=== PATIENT | male | born 1985 | race Hispanic/Latino ===

== ENCOUNTER 2019-02-16 18:56 | Emergency (ER) | payer SELFPAY ==
[2019-02-16] MEDS ORDERED: METOPROLOL TAR 50 MG TAB ONE (20:07)
[2019-02-16] MEDS ORDERED: ENALAPRILAT 1.25 MG/ML VIAL IV ONE (20:07)
[2019-02-16] MEDS ORDERED: NA CHLORIDE 0.9% 1,000 ML ONE (20:07)
[2019-02-16] MEDS ORDERED: ASPIRIN 81 MG CHEWABLE TABLET ONE (20:07)
[2019-02-16] MEDS ORDERED: FAMOTIDINE 20 MG/2 ML VIAL IV ONE (20:07)
[2019-02-16] MEDS ORDERED: THIAMINE 200 MG/2 ML INJ ONE (20:07)
[2019-02-16 20:09] LABS: Protime INR 1.03
[2019-02-16 20:10] LABS: Basophils % 0.4 % (0-1.3); Hematocrit 46.9 % (39.6-49.0); Lymphocytes % 35.3 % (15.3-44.8); MPV 7.4 fL (7.6-11.3); RBC Red Blood Cell Count 5.12 M/uL (4.33-5.43)
--- NOTE | 2019-02-16 20:35 | RAD REPORT ---
EXAM DESCRIPTION: RAD - Chest Single View - 02/16/2019 8:00 pm CLINICAL HISTORY: Chest pain COMPARISON: None. TECHNIQUE: AP portable chest image was obtained 1956 hours . FINDINGS: Lungs are clear. Heart and vasculature are normal. No measurable pleural effusion and no p neumothorax. No acute bony abnormality seen. No acute aortic findings suspected. IMPRESSION: No acute cardiopulmonary process.
[2019-02-16 20:37] LABS: ALT/SGPT 72 U/L (12-78); AST/SGOT 37 U/L (15-37); Albumin 4.1 g/dL (3.4-5.0); Alkaline Phosphatase 96 U/L (45-117); BUN Blood Urea Nitrogen 14 mg/dL (7-18); Bicarbonate 28 mmol/L (21-32); Bilirubin Direct 0.1 mg/dL (0-0.2); Bilirubin Total 0.4 mg/dL (0.2-1.0); Glucose Level 111 mg/dL (74-106); Magnesium 2.6 mg/dL (1.8-2.4); Potassium 4.1 mmol/L (3.5-5.1); Sodium Level 146 mmol/L (136-145); Troponin (Emerg Dept Use Only) < 0.02 ng/mL (0.0-0.045)
[2019-02-16 20:42] LABS: NT PRO-BNP < 5 pg/mL (<125)
[2019-02-16 20:50] LABS: Barbiturates NEGATIVE (NEGATIVE); Benzodiazepines NEGATIVE (NEGATIVE); Cocaine NEGATIVE (NEGATIVE); METHAMPHETAM NEGATIVE (NEGATIVE); Methadone NEGATIVE (NEGATIVE); Opiates NEGATIVE (NEGATIVE); Phencyclidine NEGATIVE (NEGATIVE); THC Cannibis NEGATIVE (NEGATIVE)
[2019-02-16 21:01] LABS: Lipase 164 U/L (73-393)
[2019-02-16 21:28] LABS: Urine Blood NEGATIVE (NEG); Urine Glucose NEGATIVE (NEG); Urine Protein NEGATIVE (NEG)
--- NOTE | 2019-02-16 22:36 | EDPHYS ---
Physician Documentation [facility] Name: Erich Leung Age: 33 yrs Sex: Male : 1985 Arrival Date: 02/16/2019 Time: 18:58 Bed 30 Private MD: ED Physician Jens Balderas HPI: 02/16 19:55 This 33 yrs old Male presents to ER via Ambulatory with complaints of Chest chadd Pain. 19:55 The patient or guardian reports chest pain that is located primarily in the anterior chadd chest wall, bilaterally. The pain does not radiate. Associated signs and symptoms: Pertinent positives: vomiting. The chest pain is described as a pressure, sharp. Modifying factors: The symptoms are alleviated by nothing. the symptoms are aggravated by nothing. Severity of pain: At its worst the pain was mild in the emergency department the pain is unchanged. The patient has experienced similar episodes in the past, a few times. Historical: - Allergies: 19:03 No Known Allergies; ak1 - Home Meds: 19:03 None [Active]; ak1 - PMHx: 19:03 None; ak1 - PSHx: 19:03 right leg, right foot hardware; ak1 - Immunization history:: Adult Immunizations unknown. - Social history:: Smoking status: Patient uses tobacco products, smokes one-half pack cigarettes per day. - Ebola Screening: : No symptoms or risks identified at this time. - Family history:: not pertinent. ROS: 19:55 Constitutional: Negative for fever, chills, and weight loss, Eyes: Negative for injury, chadd pain, redness, and discharge, ENT: Negative for injury, pain, and discharge, Neck: Negative for injury, pain, and swelling, Respiratory: Negative for shortness of breath, cough, wheezing, and pleuritic chest pain, Abdomen/GI: Negative for abdominal pain, nausea, vomiting, diarrhea, and constipation, Back: Negative for injury and pain, : Negative for injury, bleeding, discharge, and swelling, MS/Extremity: Negative for injury and deformity, Skin: Negative for injury, rash, and discoloration, Neuro: Negative for headache, weakness, numbness, tingling, and seizure, Psych: Negative for depression, anxiety, suicide ideation, homicidal ideation, and hallucinations, Allergy/Immunology: Negative for hives, rash, and allergies, Endocrine: Negative for neck swelling, polydipsia, polyuria, polyphagia, and marked weight changes, Hematologic/Lymphatic: Negative for swollen nodes, abnormal bleeding, and unusual bruising. 19:55 Cardiovascular: Positive for chest pain, of the chest. Exam: 19:55 Constitutional: This is a well developed, well nourished patient who is awake, alert, chadd and in no acute distress. Head/Face: Normocephalic, atraumatic. Eyes: Pupils equal round and reactive to light, extra-ocular motions intact. Lids and lashes normal. Conjunctiva and sclera are non-icteric and not injected. Cornea within normal limits. Periorbital areas with no swelling, redness, or edema. ENT: Nares patent. No nasal discharge, no septal abnormalities noted. Tympanic membranes are normal and external auditory canals are clear. Oropharynx with no redness, swelling, or masses, exudates, or evidence of obstruction, uvula midline. Mucous membranes moist. Neck: Trachea midline, no thyromegaly or masses palpated, and no cervical lymphadenopathy. Supple, full range of motion without nuchal rigidity, or vertebral point tenderness. No Meningismus. Chest/axilla: Normal chest wall appearance and motion. Nontender with no deformity. No lesions are appreciated. Respiratory: Lungs have equal breath sounds bilaterally, clear to auscultation and percussion. No rales, rhonchi or wheezes noted. No increased work of breathing, no retractions or nasal flaring. Abdomen/GI: Soft, non-tender, with normal bowel sounds. No distension or tympany. No guarding or rebound. No evidence of tenderness throughout. Back: No spinal tenderness. No costovertebral tenderness. Full range of motion. Male : Normal genitalia with no discharge or lesions. Skin: Warm, dry with normal turgor. Normal color with no rashes, no lesions, and no evidence of cellulitis. MS/ Extremity: Pulses equal, no cyanosis. Neurovascular intact. Full, normal range of motion. Neuro: Awake and alert, GCS 15, oriented to person, place, time, and situation. Cranial nerves II-XII grossly intact. Motor strength 5/5 in all extremities. Sensory grossly intact. Cerebellar exam normal. Normal gait. Psych: Awake, alert, with orientation to person, place and time. Behavior, mood, and affect are within normal limits. 19:55 Cardiovascular: Rate: tachycardic, Rhythm: regular, Pulses: Pulses are 4+ in bilateral radial, brachial, femoral, popliteal, posterior tibial and and dorsalis pedis arteries.. Heart sounds: normal, Edema: is not appreciated, JVD: is not appreciated. Vital Signs: 19:03 BP 164 / 112; Pulse 110; Resp 18; Temp 98.1; Pulse Ox 98% on R/A; Weight 83.91 kg (R); ak1 Height 5 ft. 7 in. (170.18 cm) (R); Pain 8/10; 21:34 BP 126 / 85; Pulse 80; Resp 17; Pulse Ox 99% on R/A; rr5 22:52 BP 122 / 91; Pulse 81; Resp 18; Temp 98; Pulse Ox 100% on R/A; Pain 0/10; mg2 19:03 Body Mass Index 28.97 (83.91 kg, 170.18 cm) ak1 MDM: 19:30 Patient medically screened. [facility] 19:57 Data reviewed: vital signs, nurses notes, lab test result(s), EKG, radiologic studies, chadd plain films. 02/16 19:40 Order name: Basic Metabolic Panel; Complete Time: 21:00 [facility] 02/16 19:40 Order name: CBC with Diff; Complete Time: 20:38 [facility] 02/16 19:40 Order name: LFT's; Complete Time: 21:00 rr5 02/16 19:40 Order name: Magnesium; Complete Time: 21:00 [facility] 02/16 19:40 Order name: NT PRO-BNP; Complete Time: 21:00 [facility] 02/16 19:40 Order name: PT-INR; Complete Time: 20:38 [facility] 02/16 19:40 Order name: Troponin (emerg Dept Use Only); Complete Time: 21:00 [facility] 02/16 19:55 Order name: Lipase; Complete Time: 21:59 [facility] 02/16 19:55 Order name: Acetaminophen; Complete Time: 21:59 [facility] 02/16 19:55 Order name: ETOH Level; Complete Time: 21:00 [facility] 02/16 19:55 Order name: Ptt, Activated; Complete Time: 20:38 [facility] 02/16 19:55 Order name: Salicylate; Complete Time: 21:59 [facility] 02/16 19:55 Order name: Urine Drug Screen; Complete Time: 21:00 [facility] 02/16 20:30 Order name: Urine Dipstick--Ancillary (enter results); Complete Time: 21:59 [facility] 02/16 19:40 Order name: XRAY Chest (1 view); Complete Time: 20:38 [facility] 02/16 19:40 Order name: EKG; Complete Time: 19:42 [facility] 02/16 19:40 Order name: Cardiac monitoring; Complete Time: 21:01 [facility] 02/16 19:40 Order name: EKG - Nurse/Tech; Complete Time: 21:01 [facility] 02/16 19:40 Order name: IV Saline Lock; Complete Time: 21:02 [facility] 02/16 19:40 Order name: Labs collected and sent; Complete Time: 21:02 [facility] 02/16 19:40 Order name: O2 Per Protocol; Complete Time: 21:02 [facility] 02/16 19:40 Order name: O2 Sat Monitoring; Complete Time: 21:02 [facility] 02/16 19:55 Order name: Urine Dipstick-Ancillary (obtain specimen); Complete Time: 21:01 [facility] 02/16 21:06 Order name: Troponin (emerg Dept Use Only): 10pm; Complete Time: 22:34 [facility] Administered Medications: 20:15 Drug: Aspirin 162 mg Route: PO; rr5 22:55 Follow up: Response: No adverse reaction mg2 20:15 Drug: Lopressor (metoprolol TARTRATE) 50 mg Route: PO; rr5 22:54 Follow up: Response: No adverse reaction; Marked relief of symptoms mg2 20:25 Drug: NS 0.9% 1000 ml Route: IV; Rate: 1 bolus; Site: right antecubital; rr5 22:55 Follow up: Response: No adverse reaction; IV Status: Completed infusion; IV Intake: mg2 1000ml 20:25 Drug: Thiamine 100 mg Route: IV; Rate: bolus; Site: right antecubital; rr5 22:55 Follow up: Response: No adverse reaction; IV Status: Completed infusion mg2 20:28 Drug: Enalaprilat 1.25 mg Route: IV; Rate: per protocol; Site: right antecubital; rr5 22:55 Follow up: Response: No adverse reaction; IV Status: Completed infusion mg2 20:30 Drug: Pepcid 20 mg Route: IVP; Site: right antecubital; rr5 22:55 Follow up: Response: No adverse reaction mg2 Disposition: 02/16/19 22:35 Discharged to Home. Impression: Other chest pain, Alcohol abuse, Alcohol abuse with intoxication, Essential (primary) hypertension. - Condition is Stable. - Discharge Instructions: Alcohol Intoxication, Hypertension, Nonspecific Chest Pain, Ctyz-yp-Nlwy, Hypertension, Yxek-jq-Motv, Alcohol Abuse and Nutrition, How to Take Your Blood Pressure, Skzt-kv-Amtj, Aspirin and Your Heart, Managing Your Hypertension. - Prescriptions for Pepcid 20 mg Oral Tablet - take 1 tablet by ORAL route every 12 hours for 10 days; 20 tablet. Lisinopril 10 mg Oral Tablet - take 1 tablet by ORAL route once daily; 20 tablet. - Medication Reconciliation Form, Thank You Letter, Antibiotic Education, Prescription Opioid Use form. - Follow up: Private Physician; When: 2 - 3 days; Reason: Recheck today's complaints, Continuance of care, Re-evaluation by your physician. Follow up: Heri Walton MD; When: 2 - 3 days; Reason: Recheck today's complaints, Continuance of care, Re-evaluation by your physician. - Problem is new. - Symptoms have improved. Signatures: Dispatcher [employer] EDJens Velazquez MD MD cha Krenek, Amber, RN RN ak1 Raj Goldstein RN RN mg2 Ruel May RN RN rr5 Corrections: (The following items were deleted from the chart) 22:35 22:35 02/16/2019 22:35 Discharged to Home. Impression: Other chest pain; Alcohol abuse; chadd Alcohol abuse with intoxication; Essential (primary) hypertension. Condition is Stable. Discharge Instructions: Alcohol Intoxication, Hypertension, Nonspecific Chest Pain, Pawj-ct-Inwn, Hypertension, Napn-ri-Dazr, Alcohol Abuse and Nutrition, How to Take Your Blood Pressure, Pred-gq-Vens, Aspirin and Your Heart, Managing Your Hypertension. Prescriptions for Pepcid 20 mg Oral Tablet - take 1 tablet by ORAL route every 12 hours for 10 days; 20 tablet, Lisinopril 10 mg Oral Tablet - take 1 tablet by ORAL route once daily; 20 tablet. and Forms are Medication Reconciliation Form, Thank You Letter, Antibiotic Education, Prescription Opioid Use. Follow up: Private Physician; When: 2 - 3 days; Reason: Recheck today's complaints, Continuance of care, Re-evaluation by your physician. Problem is new. Symptoms have improved. chadd 22:56 22:35 02/16/2019 22:35 Discharged to Home. Impression: Other chest pain; Alcohol abuse; mg2 Alcohol abuse with intoxication; Essential (primary) hypertension. Condition is Stable. Discharge Instructions: Alcohol Intoxication, Hypertension, Nonspecific Chest Pain, Oepz-lt-Dgoa, Hypertension, Pxzz-jp-Aqyi, Alcohol Abuse and Nutrition, How to Take Your Blood Pressure, Fusk-gh-Jasq, Aspirin and Your Heart, Managing Your Hypertension. Prescriptions for Pepcid 20 mg Oral Tablet - take 1 tablet by ORAL route every 12 hours for 10 days; 20 tablet, Lisinopril 10 mg Oral Tablet - take 1 tablet by ORAL route once daily; 20 tablet. and Forms are Medication Reconciliation Form, Thank You Letter, Antibiotic Education, Prescription Opioid Use. Follow up: Private Physician; When: 2 - 3 days; Reason: Recheck today's complaints, Continuance of care, Re-evaluation by your physician. Follow up: Heri Walton; When: 2 - 3 days; Reason: Recheck today's complaints, Continuance of care, Re-evaluation by your physician. Problem is new. Symptoms have improved. [facility]
--- NOTE | 2019-02-16 22:36 | ER ---
Nurse's Notes [facility] Name: Erich Leung Age: 33 yrs Sex: Male : 1985 Arrival Date: 02/16/2019 Time: 18:58 Bed 30 Private MD: Diagnosis: Other chest pain;Alcohol abuse;Alcohol abuse with intoxication;Essential (primary) hypertension Presentation: 02/16 19:02 Presenting complaint: Patient states: chest pain after drinking for 2 weeks. pt stated ak1 he had alcohol today. pt c/o vomiting. Transition of care: patient was not received from another setting of care. Onset of symptoms is unknown. Risk Assessment: Do you want to hurt yourself or someone else? Patient reports no desire to harm self or others. Initial Sepsis Screen: Does the patient meet any 2 criteria? No. Patient's initial sepsis screen is negative. Does the patient have a suspected source of infection? No. Patient's initial sepsis screen is negative. Care prior to arrival: None. 19:02 Method Of Arrival: Ambulatory ak1 19:02 Acuity: ANNA 3 ak1 Triage Assessment: 19:03 General: Appears in no apparent distress. ak1 Historical: - Allergies: 19:03 No Known Allergies; ak1 - Home Meds: 19:03 None [Active]; ak1 - PMHx: 19:03 None; ak1 - PSHx: 19:03 right leg, right foot hardware; ak1 - Immunization history:: Adult Immunizations unknown. - Social history:: Smoking status: Patient uses tobacco products, smokes one-half pack cigarettes per day. - Ebola Screening: : No symptoms or risks identified at this time. - Family history:: not pertinent. Screenin:52 Abuse screen: Denies threats or abuse. Denies injuries from another. Nutritional mg2 screening: No deficits noted. Tuberculosis screening: No symptoms or risk factors identified. Fall Risk IV access (20 points). Assessment: 22:52 General: Appears in no apparent distress. comfortable, Behavior is calm, cooperative. mg2 Pain: Complains of pain in chest Pain does not radiate. Pain currently is 2 out of 10 on a pain scale. Quality of pain is described as aching, Pain began gradually, Is intermittent. Neuro: Level of Consciousness is awake, alert, obeys commands, Oriented to person, place, time, situation. Cardiovascular: Capillary refill < 3 seconds Patient's skin is warm and dry. Respiratory: Airway is patent Respiratory effort is even, unlabored, Respiratory pattern is regular, symmetrical. GI: Abdomen is flat, non-distended. : No signs and/or symptoms were reported regarding the genitourinary system. EENT: No signs and/or symptoms were reported regarding the EENT system. Derm: Skin is intact, is healthy with good turgor, Skin is pink, warm \T\ dry. normal. Musculoskeletal: Circulation, motion, and sensation intact. Capillary refill < 3 seconds. Vital Signs: 19:03 BP 164 / 112; Pulse 110; Resp 18; Temp 98.1; Pulse Ox 98% on R/A; Weight 83.91 kg (R); ak1 Height 5 ft. 7 in. (170.18 cm) (R); Pain 8/10; 21:34 BP 126 / 85; Pulse 80; Resp 17; Pulse Ox 99% on R/A; rr5 22:52 BP 122 / 91; Pulse 81; Resp 18; Temp 98; Pulse Ox 100% on R/A; Pain 0/10; mg2 19:03 Body Mass Index 28.97 (83.91 kg, 170.18 cm) ak1 ED Course: 18:58 Patient arrived in ED. mr 19:03 Triage completed. ak1 19:03 Arm band placed on Patient placed in an exam room, on a stretcher, on desk monitor, ak1 on pulse oximetry, Patient notified of wait time. 19:30 Jens Balderas MD is Attending Physician. chadd 19:39 Ruel May RN is Primary Nurse. rr5 19:59 XRAY Chest (1 view) In Process Unspecified. EDMS 22:00 No provider procedures requiring assistance completed. Inserted saline lock: 20 gauge mg2 in right antecubital area, using aseptic technique. by WYATT Lipscomb. 22:35 Heri Walton MD is Referral Physician. chadd 22:52 IV discontinued, intact, bleeding controlled, No redness/swelling at site. Pressure mg2 dressing applied. Patient maintains SpO2 saturation greater than 95% on room air. 22:54 Patient has correct armband on for positive identification. monitoring specialist on. Pulse mg2 ox on. NIBP on. Administered Medications: 20:15 Drug: Aspirin 162 mg Route: PO; rr5 22:55 Follow up: Response: No adverse reaction mg2 20:15 Drug: Lopressor (metoprolol TARTRATE) 50 mg Route: PO; rr5 22:54 Follow up: Response: No adverse reaction; Marked relief of symptoms mg2 20:25 Drug: NS 0.9% 1000 ml Route: IV; Rate: 1 bolus; Site: right antecubital; rr5 22:55 Follow up: Response: No adverse reaction; IV Status: Completed infusion; IV Intake: mg2 1000ml 20:25 Drug: Thiamine 100 mg Route: IV; Rate: bolus; Site: right antecubital; rr5 22:55 Follow up: Response: No adverse reaction; IV Status: Completed infusion mg2 20:28 Drug: Enalaprilat 1.25 mg Route: IV; Rate: per protocol; Site: right antecubital; rr5 22:55 Follow up: Response: No adverse reaction; IV Status: Completed infusion mg2 20:30 Drug: Pepcid 20 mg Route: IVP; Site: right antecubital; rr5 22:55 Follow up: Response: No adverse reaction mg2 Intake: 22:55 IV: 1000ml; Total: 1000ml. mg2 Outcome: 22:35 Discharge ordered by . chadd 22:54 Discharged to home ambulatory, with family. mg2 22:54 Condition: stable 22:54 Discharge instructions given to patient, family, Instructed on discharge instructions, follow up and referral plans. medication usage, Demonstrated understanding of instructions, follow-up care, medications, Prescriptions given X 2. 22:56 Patient left the ED. mg2 Signatures: Dispatcher [employer] EDJens Velazquez MD MD cha Rivera, Mary mr Krenek, Noemi, RN RN ak1 Raj Goldstein, RN RN mg2 Ruel May, RN RN rr5
[2019-02-17 01:03] VITALS: BP 122/91; TEMP 98; O2SAT 100
--- NOTE | 2019-02-17 07:47 | EKG ---
Test Date: 2019-02-16 Test Time: 19:12:45 Speech Instructor: RR MEASUREMENT RESULTS: Intervals: Rate: 101 [place]: 132 QRSD: 94 QT: 340 QTc: 440 [place]: P: 77 [place]: 132 QRS: 70 T: 59 INTERPRETIVE STATEMENTS: Sinus tachycardia Otherwise normal ECG No previous ECG available for comparison Electronically Signed On 02-17-19 07:46:09 CDT by [facility]
== END 2019-02-16 22:56 | disposition home or self-care (01) ==
LOC: ER 18:56
DX: R07.89 Other chest pain (principal); F10.129 Alcohol abuse with intoxication, unspecified; I10 Essential (primary) hypertension; F17.210 Nicotine dependence, cigarettes, uncomplicated
CPT/HCPCS: 36415; 71045; 80048; 80076; 80307; 80320; 80329; 81003; 83690; 83735; 83880; 84484; 85025; 85610; 85730; 93005; 96365; 96375; 99285; J3411; J7030

== ENCOUNTER 2020-07-21 10:29 | Emergency (ER) | payer SELFPAY ==
--- OUTSIDE RECORDS SUMMARY | 2020-07-21 10:36 | XMS REPORT | Summary of Care ---
:1985 Author Organization [facility] - Health Address [address] [place] [address] Care Team Providers Name Role Phone Pcp, Patient Does Not Have A Primary Care Provider [phone] Encounter Details Date Type Department Care Team Description 07/18/2020 Letter (Out) [facility] [employer] Message s Doctor Unassigned, [address] [facility] [place] [address] [address] [facility] [phone] [place] [address] Allergies No Known Allergiesdocumented as of this encounter (statuses as of 07/18/2020) Medications Medication Sig Dispensed Refills Start Date End Date Status acetaminophen-codeine Take 1 Tab by 60 Tab 1 08/22/2014 Active (TYLENOL #3) 300-30 mg mouth every 4 tablet (four) hours as needed for Pain (scale 7-10). documented as of this encounter (statuses as of 07/18/2020) Active Problems No known active problemsdocumented as of this encounter (statuses as of 07/18/2020) Social History Tobacco Use Types Packs/Day Years Used Date Current Some Day Smoker Cigarettes Alcohol Use Drinks/Week oz/Week Comments Not Asked Sex Assigned at Date Recorded Not on file documented as of this encounter Last Filed Vital Signs Not on filedocumented in this encounter Plan of Treatment Date Type Specialty Care Team Description 07/18/2020 Laboratory Only Family Medicine Digna Mullins, JAVA WEB ENGINEER [address] [address] Arrived Lab, [facility] Pob I 07/19/2020 Laboratory Only Family Medicine Lab, [facility] Pob I Health Maintenance Due Date Last Done Comments VARICELLA VACCINES (1 of 2 - 1987 2-dose childhood series) Depression Screening 1998 DTaP,Tdap,and Td Vaccines (1 - 2005 Tdap) INFLUENZA VACCINE (#1) 2020 PNEUMOCOCCAL 0-64 YEARS COMBINED Aged Out No longer eligible based on SERIES patient's age to complete this topic documented as of this encounter Results Not on filedocumented in this encounter
--- OUTSIDE RECORDS SUMMARY | 2020-07-21 10:36 | XMS REPORT | Summary of Care ---
:1985 Author Organization [facility] - [facility] Address [address] [place] [id number] Care Team Providers Name Role Phone Pcp, Patient Does Not Have A Primary Care Provider [phone] Reason for Visit Reason Comments LAB Exposure Encounter Details Date Type Department Care Team Description 07/18/2020 Laboratory Only [facility] Family Kavon Mullins, ACCOUNTING METHODS ANALYST [address] [place] [address] Exposure to Medicine - [place] [facility], [facility] Pob I SARS-associated [address] [place] [address] coronaviru s ([address] Dx) [place] [address] Allergies No Known Allergiesdocumented as of this [...] Assigned at Date Recorded Not on file COVID-19 Exposure Response Date Recorded In the last month, have you been in contact with No / Unsure 07/18/2020 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 documented as of this encounter Last Filed Vital Signs Not on filedocumented in this encounter Nursing Notes Rani Pepe MA - 07/18/2020 8:20 AM CSTErich Leung is a 35 year old male here for COVID Screening with a Nasopharyngeal Swab All droplet and contact precautions taken with appropriate PPE worn while interacting with patient. ? Goggles ? N95 Mask ? Gloves ? Gown RR 16 Ox 98% Patient educated on plan of care for visit, swabbing technique, risks and benefits of test and length of time to receive results. Verbal consent obtained to perform test. CDC Fact Sheet for Patients nCoV Diagnostic Panel dated 09/12/2019 and Factsheet What to Do if Sick with COVID 19 08/23/19 provided. Bilate nares swabbed during COVID19 nasopharyngeal swab. Patient swabbed per appropriate nasopharyngeal technique, and patient tolerated well. Patient was discharged from the testing clinic in stable condition. RANI PEPE MA 07/18/2020 8:17 AM ER AND PRESSER documented in this encounter Plan of Treatment Date Type Specialty Care Team Description 07/19/2020 Laboratory Only Family Medicine Lab, [facility] Pob I Name Type Priority Associated Diagnoses Order S chedule COVID-19 (MOLECULAR LAB Routine Exposure to Expected : 07/18/2020, TESTING SARS-associated Expires: 022 NUCLEIC ACID coronavirus AMPLIFICATION) Health Maintenance Due Date Last Done Comments VARICELLA VACCINES (1 of 2 - 1987 2-dose childhood series) Depression Screening 1998 DTaP,Tdap,and Td Vaccines (1 - 2005 Tdap) INFLUENZA VACCINE (#1) 2020 PNEUMOCOCCAL 0-64 YEARS COMBINED Aged Out No longer eligible based on SERIES patient's age to complete this topic documented as of this encounter Results Not on filedocumented in this encounter Visit Diagnoses Diagnosis Exposure to SARS-associated coronavirus - Primary documented in this encounter Additional Health Concerns Infection Onset Date Last Indicated Resolved Time COVID-19 Rule Out 07/18/2020 07/18/2020 documented as of this encounter
--- OUTSIDE RECORDS SUMMARY | 2020-07-21 10:36 | XMS REPORT | Continuity of Care Document ---
:1985 Author Organization [facility] t Address [address] [place] [address] Care Team Providers Name Role Phone Lab, [facility] Pob I Attending Clinician Unavailable Doctor Unassigned, Name Attending Clinician Unavailable Problems This patient has no known problems. Allergies, Adverse Reactions, Alerts This patient has no known allergies or adverse reactions. Medications This patient has no known medications. Procedures This patient has no known procedures. Encounters Start End Encounter Admission Attending Care Care Encounter Source Date/Time Date/Time Type Type Clinicians Facility Department ID 2020-07-18 2020-07-18 Laboratory Lab, [facility] [id number] 08:14:58 08:34:58 Only Fam Pob I Health [id number] [place] [id number] Professio [phone] nal [address] One 2020-07-18 2020-07-18 Letter Doctor LUCÍA [id number] 00:00:00 00:00:00 (Out) Unassigned, AYAN [id number] [place] [facility] [id number] 044 Results This patient has no known results.
--- NOTE | 2020-07-21 12:31 | ER ---
Nurse's Notes [facility] Name: Erich Leung Age: 35 yrs Sex: Male : 1985 Arrival Date: 07/21/2020 Time: 10:38 Bed 18 Private MD: Diagnosis: Coronavirus infection, unspecified Presentation: 07/21 10:58 Chief complaint: Patient states: Covid+ 07/18/2020. S/S started 07/16/2020. S/S cough, ca1 loss of taste and smell. SOB since yesterday. Coronavirus screen: Client denies travel out of the [place] in the last 14 days. cough unrelated to allergies, shortness of breath, loss of taste or smell, Client presents with at least one sign or symptom that may indicate coronavirus-19. Standard/surgical mask placed on the client. Provider contacted for isolation considerations. Client reports previous positive COVID test result. Date of collection: July 18, 2020. Ebola Screen: Patient negative for fever greater than or equal to 101.5 degrees Fahrenheit, and additional compatible Ebola Virus Disease symptoms Patient denies exposure to infectious person. Patient denies travel to an Ebola-affected area in the 21 days before illness onset. No symptoms or risks identified at this time. Initial Sepsis Screen: Does the patient meet any 2 criteria? No. Patient's initial sepsis screen is negative. Does the patient have a suspected source of infection? No. Patient's initial sepsis screen is negative. Risk Assessment: Do you want to hurt yourself or someone else? Patient reports no desire to harm self or others. Onset of symptoms was July 16, 2020. 10:58 Method Of Arrival: Ambulatory ca1 10:58 Acuity: ANNA 4 ca1 Historical: - Allergies: 11:06 No Known Allergies; ca1 - Home Meds: 11:06 None [Active]; ca1 - PMHx: 11:06 None; ca1 - PSHx: 11:06 Femur R surgery; ca1 - Immunization history:: Flu vaccine is not up to date. - Social history:: Smoking status: Patient reports the use of cigarette tobacco products, denies chronic smoking, but will smoke occasionally. Screenin:11 Abuse screen: Denies threats or abuse. Nutritional screening: No deficits noted. jd3 Tuberculosis screening: No symptoms or risk factors identified. Fall Risk Ambulatory Aid- None/Bed Rest/Nurse Assist (0 pts). Gait- Normal/Bed Rest/Wheelchair (0 pts) Mental Status- Oriented to own ability (0 pts). Total Santana Fall Scale indicates No Risk (0-24 pts). Assessment: 11:10 General: Appears in no apparent distress. comfortable, Behavior is calm, cooperative, jd3 appropriate for age. Pain: Denies pain. Neuro: Level of Consciousness is awake, alert, obeys commands, Oriented to person, place, time, situation. Cardiovascular: Denies chest pain, Heart tones S1 S2 present Capillary refill < 3 seconds Patient's skin is warm and dry. Respiratory: Reports cough that is non-productive, persistent Airway is patent Respiratory effort is even, unlabored, Respiratory pattern is regular, symmetrical, Breath sounds are clear bilaterally. the patient has mild shortness of breath. GI: No signs and/or symptoms were reported involving the gastrointestinal system. Patient currently denies constipation, diarrhea, nausea, vomiting. : No signs and/or symptoms were reported regarding the genitourinary system. EENT: No signs and/or symptoms were reported regarding the EENT system. Derm: Skin is intact, Skin is dry, Skin is normal, Skin temperature is warm. Musculoskeletal: Circulation, motion, and sensation intact. Range of motion: intact in all extremities. 12:02 Reassessment: Patient appears in no apparent distress at this time. No changes from jd3 previously documented assessment. Patient and/or family updated on plan of care and expected duration. Pain level reassessed. Patient is alert, oriented x 3, equal unlabored respirations, skin warm/dry/pink. awaiting X-ray. 13:06 Reassessment: Patient appears in no apparent distress at this time. Patient and/or jd3 family updated on plan of care and expected duration. Pain level reassessed. Patient is alert, oriented x 3, equal unlabored respirations, skin warm/dry/pink. Vital Signs: 10:58 BP 148 / 88; Pulse 88; Resp 17; Temp 97.1(TE); Pulse Ox 99% on R/A; Weight 81.65 kg ca1 (R); Height 5 ft. 7 in. (170.18 cm) (R); Pain 0/10; 12:02 BP 120 / 70; Pulse 91; Resp 17 S; Pulse Ox 98% on R/A; jd3 13:06 BP 118 / 71; Pulse 98; Resp 17 S; Pulse Ox 98% on R/A; jd3 10:58 Body Mass Index 28.19 (81.65 kg, 170.18 cm) ca1 ED Course: 10:38 Patient arrived in ED. am4 11:01 Jose Carlos Barajas MD is Attending Physician. tw4 11:05 Triage completed. ca1 11:06 Arm band placed on right wrist. ca1 11:07 Khanh Caballero RN is Primary Nurse. jd3 11:11 Patient has correct armband on for positive identification. Bed in low position. Call jd3 light in reach. Side rails up X 1. Pulse ox on. NIBP on. 13:11 No provider procedures requiring assistance completed. Patient did not have IV access jd3 during this emergency room visit. Administered Medications: No medications were administered Outcome: 12:31 Discharge ordered by . tw4 13:11 Discharged to home ambulatory, with family. jd3 13:11 Condition: stable 13:11 Discharge instructions given to patient, Instructed on discharge instructions, follow up and referral plans. medication usage, Demonstrated understanding of instructions, follow-up care, medications, Prescriptions given X 3. 13:12 Patient left the ED. jd3 Signatures: Khanh Caballero RN RN jd3 Wadley, Terrence, MD MD tw4 Mickie Swanson RN RN ca1 Yvonne Chatman am4
--- NOTE | 2020-07-21 12:31 | EDPHYS ---
Physician Documentation [facility] Name: Erich Leung Age: 35 yrs Sex: Male : 1985 Arrival Date: 07/21/2020 Time: 10:38 Bed 18 Private MD: ED Physician Jose Carlos Barajas Historical: - Allergies: 07/21 11:06 No Known Allergies; ca1 - Home Meds: 11:06 None [Active]; ca1 - PMHx: 11:06 None; ca1 - PSHx: 11:06 Femur R surgery; ca1 - Immunization history:: Flu vaccine is not up to date. - Social history:: Smoking status: Patient reports the use of cigarette tobacco products, denies chronic smoking, but will smoke occasionally. Vital Signs: 10:58 BP 148 / 88; Pulse 88; Resp 17; Temp 97.1(TE); Pulse Ox 99% on R/A; Weight 81.65 kg ca1 (R); Height 5 ft. 7 in. (170.18 cm) (R); Pain 0/10; 12:02 BP 120 / 70; Pulse 91; Resp 17 S; Pulse Ox 98% on R/A; jd3 13:06 BP 118 / 71; Pulse 98; Resp 17 S; Pulse Ox 98% on R/A; jd3 10:58 Body Mass Index 28.19 (81.65 kg, 170.18 cm) ca1 MDM: 11:01 Patient medically screened. tw07/21 11:01 Order name: CXR XRAY 07/21 12:35 Order name: RAD EDMS Administered Medications: No medications were administered Disposition: 07/21/20 12:31 Discharged to Home. Impression: Coronavirus infection, unspecified. - Condition is Stable. - Discharge Instructions: Upper Respiratory Infection, Adult, COVID-19. - Prescriptions for Zithromax Z- Erwin 250 mg Oral Tablet - take 1 tablet by ORAL route as directed for 5 days Day 1 - take two (2) tablets one time. Day 2, 3, 4 , 5 take one (1) tablet once daily.; 6 tablet. Medrol (Erwin) 4 mg Oral Tablets, Dose Pack - take 1 tablet by ORAL route as directed - follow package instructions; 1 packet. Albuterol Sulfate 90 mcg/actuation - inhale 1-2 puff by INHALATION route every 4-6 hours; 1 Inhaler. - Medication Reconciliation Form, Thank You Letter, Antibiotic Education, Prescription Opioid Use, Work release form form. - Follow up: Private Physician; When: Upon discharge from the Emergency Department; Reason: Recheck today's complaints, Continuance of care, Re-evaluation by your physician. - Problem is new. - Symptoms have improved. Addendum: 08/22/2020 06:40 Addendum: HPI: Pt is a 35 year old male that comes to the ED with complaint of SOB. Pt t w4 states he was recently diagnosed with COVID + 07/18/20 and his symptoms started 2 days before that. Pt states that he lost taste and smell. Pt denies chest pain or fevers.. Addendum: ROS: Constitutional: negative for fevers, chills HEENT; negative for sore throat, neck pain, difficultly swallowing Resp: positive for SOB, cough Abdomen:negative for abdominal pain, nausea,vomiting Ext: negative for injury,edema, Neuro; negative for weakness, numbness, speech changes . Addendum: PE: General: well developed male in NAD HEENT: PEERLA, EOMI Neck: supple nontender Resp: CTAB, nl BS, no resp distress CV; RRR, nl S1,S2 no murmurs no gallops Abdomen: soft, ND, NT nl BS Ext: nontender no edema Neuro: alert and oriented times three, no gross weakness,numbness, normal gait. Signatures: Dispatcher [employer] EDMS Khanh Caballero RN RN jd3 Wadley, Terrence, MD MD tw4 Mickie Swanson RN RN ca1 Corrections: (The following items were deleted from the chart) 07/21 13:12 12:31 07/21/2020 12:31 Discharged to Home. Impression: Coronavirus infection, jd3 unspecified. Condition is Stable. Forms are Medication Reconciliation Form, Thank You Letter, Antibiotic Education, Prescription Opioid Use. Follow up: Private Physician; When: Upon discharge from the Emergency Department; Reason: Recheck today's complaints, Continuance of care, Re-evaluation by your physician. Problem is new. Symptoms have improved. tw4
--- NOTE | 2020-07-21 12:34 | RAD REPORT ---
EXAM DESCRIPTION: RAD - Chest Single View - 07/21/2020 12:24 pm CLINICAL HISTORY: COUGH Chest pain. COMPARISON: Chest Single View dated 02/16/2019 FINDINGS: Portable technique limits examination quality. The lungs are grossly clear. The heart is normal in size. No displaced fractures. IMPRESSION: No acute intrathoracic process suspected.
[2020-07-21 13:16] VITALS: TEMP 97.1
[2020-07-21 13:18] VITALS: O2SAT 98
[2020-07-21 13:19] VITALS: BP 118/71
== END 2020-07-21 13:12 | disposition home or self-care (01) ==
LOC: ER 10:29
DX: U07.1 COVID-19 (principal); F17.210 Nicotine dependence, cigarettes, uncomplicated
CPT/HCPCS: 71045; 99283

== ENCOUNTER 2020-07-23 10:44 | Emergency (ER) | payer SELFPAY ==
--- OUTSIDE RECORDS SUMMARY | 2020-07-23 10:46 | XMS REPORT | Continuity of Care Document ---
:1985 Author Organization [facility] t Address [address] [place] [address] Care Team Providers Name Role Phone Lab, Fam Pob I Attending Clinician Unavailable Doctor Unassigned, [...] Facility Department ID 2020-07-18 2020-07-18 Laboratory Lab, [facility] [id number] 08:14:58 08:34:58 Only Fam Pob I Health [id number] [place] [id number] Professio [phone] nal [address] 2020-07-18 2020-07-18 Letter Doctor LUCÍA [id number] 00:00:00 00:00:00 (Out) Unassigned, AYAN [id number] [place] [facility] [phone] 044 Results This patient has no known results.
--- NOTE | 2020-07-23 11:49 | EDPHYS ---
Physician Documentation [facility] Name: Erich Leung Age: 35 yrs Sex: Male : 1985 Arrival Date: 07/23/2020 Time: 10:46 Bed 17 Private MD: ED Physician Benjamín Dominguez HPI: 07/23 11:26 This 35 yrs old Male presents to ER via Ambulatory with complaints of Cough, kb COVID+. 11:26 The patient or guardian reports cough, that is constant, described as moderate. Onset: kb The symptoms/episode began/occurred 1 week(s) ago. Severity of symptoms: At their worst the symptoms were moderate, in the emergency department the symptoms are unchanged. Modifying factors: The symptoms are alleviated by nothing, the symptoms are aggravated by nothing. Associated signs and symptoms: The patient has no apparent associated signs or symptoms. The patient has not experienced similar symptoms in the past. The patient has been recently seen by a physician:. Pt states he tested positive for covid on Friday. States most of his symptoms have resolved, but he still has a cough that is worse at night. States he has family members that got pneumonia from covid so he came to get a chest x-ray to make sure his lungs were still good. Historical: - Allergies: 11:07 No Known Allergies; iw - Home Meds: 11:07 None [Active]; iw - PMHx: 11:07 None; iw - PSHx: 11:06 Femur R surgery; iw - Immunization history:: Adult Immunizations. - Social history:: Smoking status: Patient denies any tobacco usage or history of. ROS: 11:25 Constitutional: Negative for fever, chills, and weight loss, Cardiovascular: Negative kb for chest pain, palpitations, and edema, Abdomen/GI: Negative for abdominal pain, nausea, vomiting, diarrhea, and constipation, Back: Negative for injury and pain, MS/Extremity: Negative for injury and deformity, Skin: Negative for injury, rash, and discoloration, Neuro: Negative for headache, weakness, numbness, tingling, and seizure. 11:25 Respiratory: Positive for cough, Negative for dyspnea on exertion, hemoptysis, orthopnea, pleurisy, shortness of breath, sputum production, wheezing. Exam: 11:25 Constitutional: This is a well developed, well nourished patient who is awake, alert, kb and in no acute distress. Head/Face: Normocephalic, atraumatic. Chest/axilla: Normal chest wall appearance and motion. Nontender with no deformity. No lesions are appreciated. Cardiovascular: Regular rate and rhythm with a normal S1 and S2. No gallops, murmurs, or rubs. Normal PMI, no JVD. No pulse deficits. Respiratory: Lungs have equal breath sounds bilaterally, clear to auscultation and percussion. No rales, rhonchi or wheezes noted. No increased work of breathing, no retractions or nasal flaring. Abdomen/GI: Soft, non-tender, with normal bowel sounds. No distension or tympany. No guarding or rebound. No evidence of tenderness throughout. Skin: Warm, dry with normal turgor. Normal color with no rashes, no lesions, and no evidence of cellulitis. MS/ Extremity: Pulses equal, no cyanosis. Neurovascular intact. Full, normal range of motion. Neuro: Awake and alert, GCS 15, oriented to person, place, time, and situation. Cranial nerves II-XII grossly intact. Motor strength 5/5 in all extremities. Sensory grossly intact. Cerebellar exam normal. Normal gait. Vital Signs: 11:04 Resp 18 S; Pulse Ox 99% on R/A; iw 11:06 BP 138 / 76; Pulse 99; iw 11:55 BP 145 / 77; Pulse 100; Resp 18 S; Pulse Ox 100% on R/A; ca1 MDM: 11:08 Patient medically screened. kb 11:25 Data reviewed: vital signs, nurses notes. Data interpreted: Pulse oximetry: on room air kb is 99 %. Interpretation: normal. Counseling: I had a detailed discussion with the patient and/or guardian regarding: the historical points, exam findings, and any diagnostic results supporting the discharge/admit diagnosis, radiology results, the need for outpatient follow up, a family practitioner, to return to the emergency department if symptoms worsen or persist or if there are any questions or concerns that arise at home. 07/23 11:09 Order name: Chest Single View XRAY kb Administered Medications: No medications were administered Disposition: 16:03 Co-signature as Attending Physician, Benjamín Dominguez MD. rn Disposition: 07/23/20 11:49 Discharged to Home. Impression: Coronavirus infection, unspecified. - Condition is Stable. - Discharge Instructions: Viral Respiratory Infection, [id number], COVID-19. - Prescriptions for Tessalon Perles 100 mg Oral Capsule - take 1 capsule by ORAL route every 8 hours As needed; 15 capsule. - Medication Reconciliation Form, Thank You Letter, Antibiotic Education, Prescription Opioid Use form. - Follow up: Emergency Department; When: As needed; Reason: Worsening of condition. Follow up: Private Physician; When: 2 - 3 days; Reason: Recheck today's complaints, Continuance of care, Re-evaluation by your physician. Signatures: Dispatcher [employer] EDJeannie Mccall, BLUEPRINT BLOCKER-C BLUEPRINT BLOCKER-Ckb Cherie Ferrera, RN RN Benjamín Calloway MD MD rn Acob, Mickie RN RN ca1 Corrections: (The following items were deleted from the chart) 11:56 11:49 07/23/2020 11:49 Discharged to Home. Impression: Coronavirus infection, ca1 unspecified. Condition is Stable. Forms are Medication Reconciliation Form, Thank You Letter, Antibiotic Education, Prescription Opioid Use. Follow up: Emergency Department; When: As needed; Reason: Worsening of condition. Follow up: Private Physician; When: 2 - 3 days; Reason: Recheck today's complaints, Continuance of care, Re-evaluation by your physician. kb
--- NOTE | 2020-07-23 11:49 | ER ---
Nurse's Notes [facility] Name: Erich Leung Age: 35 yrs Sex: Male : 1985 Arrival Date: 07/23/2020 Time: 10:46 Bed 17 Private MD: Diagnosis: Coronavirus infection, unspecified Presentation: 07/23 11:04 Chief complaint: Patient states: tested positive for COVID last week, was seen here iw Friday for a cough, was told his lungs were good, cough is still lingering. Coronavirus screen: Client presents with at least one sign or symptom that may indicate coronavirus-19. Client reports previous positive COVID test result. Ebola Screen: Patient negative for fever greater than or equal to 101.5 degrees Fahrenheit, and additional compatible Ebola Virus Disease symptoms Patient denies exposure to infectious person. Patient denies travel to an Ebola-affected area in the 21 days before illness onset. No symptoms or risks identified at this time. Initial Sepsis Screen: Does the patient meet any 2 criteria? No. Patient's initial sepsis screen is negative. Does the patient have a suspected source of infection? No. Patient's initial sepsis screen is negative. Risk Assessment: Do you want to hurt yourself or someone else? Patient reports no desire to harm self or others. Onset of symptoms was July 18, 2020. 11:04 Method Of Arrival: Ambulatory iw 11:04 Acuity: ANNA 4 iw Historical: - Allergies: 11:07 No Known Allergies; iw - Home Meds: 11:07 None [Active]; iw - PMHx: 11:07 None; iw - PSHx: 11:06 Femur R surgery; iw - Immunization history:: Adult Immunizations. - Social history:: Smoking status: Patient denies any tobacco usage or history of. Screenin:10 Abuse screen: Denies threats or abuse. Denies injuries from another. Nutritional ca1 screening: No deficits noted. Tuberculosis screening: No symptoms or risk factors identified. Fall Risk None identified. Assessment: 11:10 General: Appears in no apparent distress. comfortable, Behavior is calm, cooperative, ca1 appropriate for age. Pain: Denies pain. Neuro: Level of Consciousness is awake, alert, obeys commands, Oriented to person, place, time, situation. Respiratory: Reports cough that is dry, persistent Airway is patent Respiratory effort is even, unlabored, Respiratory pattern is regular, symmetrical, Breath sounds are clear bilaterally. Derm: Skin is intact, is healthy with good turgor, Skin is pink, warm \T\ dry. Musculoskeletal: Circulation, motion, and sensation intact. Capillary refill < 3 seconds. 11:55 Reassessment: Patient appears in no apparent distress at this time. Patient is alert, ca1 oriented x 3, equal unlabored respirations, skin warm/dry/pink. Vital Signs: 11:04 Resp 18 S; Pulse Ox 99% on R/A; iw 11:06 BP 138 / 76; Pulse 99; iw 11:55 BP 145 / 77; Pulse 100; Resp 18 S; Pulse Ox 100% on R/A; ca1 ED Course: 10:46 Patient arrived in ED. ag5 11:03 Jeannie Zarate FNP-C is PHCP. kb 11:03 Benjamín Dominguez MD is Attending Physician. kb 11:05 Triage completed. iw 11:07 Arm band placed on. iw 11:08 Mickie Swanson, WYATT is Primary Nurse. ca1 11:10 Patient has correct armband on for positive identification. Bed in low position. Call ca1 light in reach. Side rails up X 1. Pulse ox on. NIBP on. Warm blanket given. 11:46 Chest Single View XRAY In Process Unspecified. EDMS 11:55 No provider procedures requiring assistance completed. Patient did not have IV access ca1 during this emergency room visit. Administered Medications: No medications were administered Outcome: 11:49 Discharge ordered by . kb 11:56 Patient left the ED. ca1 Signatures: Dispatcher [employer] EDMS Jeannie Zarate FNP-C FNP-Ckb Williams, Irene, WYATT SCHNEIDER Mickie Swanson RN RN Manuel Stewart ag5
[2020-07-23 12:02] VITALS: BP 145/77; O2SAT 100
--- NOTE | 2020-07-23 12:23 | RAD REPORT ---
EXAM DESCRIPTION: RAD - Chest Single View - 07/23/2020 11:46 am CLINICAL HISTORY: COUGH, persistent with recent positive COVID test COMPARISON: July 21 TECHNIQUE: AP portable chest image was obtained 07/23/2020 11:46 am . FINDINGS: Lung volumes are decreased from the prior study. This accentuates the interstitial pattern . No focal lung parenchymal infiltrates identified. There is lung base atelectasis. Heart and vascula ture are normal. No measurable pleural effusion and no pneumothorax. No acute bony abnormality seen. No acute aortic findings suspected. IMPRESSION: No acute cardiopulmonary process.
== END 2020-07-23 11:56 | disposition home or self-care (01) ==
LOC: ER 10:44
DX: U07.1 COVID-19 (principal)
CPT/HCPCS: 71045; 99283